=== PATIENT | male | born 1950 | race Caucasian/White ===

== ENCOUNTER 2019-05-31 19:41 | Emergency (ER) | payer MEDICARE, OTHER, SELFPAY ==
[2019-05-31 19:52] VITALS: BP 153/77; PULSE 89; RESP 20; O2SAT 99; BMI 27.0
--- NOTE | 2019-05-31 19:55 | DI.RAD.S_ITS ---
PROCEDURE: XR CHEST 1V INDICATIONS: chest pain TECHNIQUE: One view of the chest was acquired. COMPARISON: None. FINDINGS: Surgical changes and devices: None. Lungs and pleura: Lungs are clear. No pleural effusions or pneumothorax. Mediastinum: Mediastinal contours appear normal. Heart size is normal. Bones and chest wall: No suspicious bony lesions. Overlying soft tissues appear unremarkable. IMPRESSION: No evidence acute pulmonary process. Dictated by: Nikolas Chang M.D. on 05/31/2019 at 20:20 Approved by: Nikolas Chang M.D. on 05/31/2019 at 20:20
[2019-05-31 20:10] LABS: Add Manual Diff / Slide Review NO; Basophils Absolute Auto 100 /uL (0-100); Basophils Percent Auto 0.5 % (0-2); Eosinophils Absolute Auto 200 /uL (0-450); Eosinophils Percent Auto 1.7 % (2-4); Hematocrit 40.1 % (41-53); Hemoglobin 13.7 g/dL (13.5-17.5); Lymphocytes Absolute Auto 3200 /uL (1100-4500); Lymphocytes Percent Auto 22.4 % (25-40); Mean Corpuscular HGB Conc 34.2 % (30-36); Mean Corpuscular Hemoglobin 30.6 PG (26-34); Mean Corpuscular Volume 89.5 fL (80-100); Monocytes Absolute Auto 1100 /uL (0-900); Monocytes Percent Auto 7.6 % (3-14); Neutrophils Absolute Auto 9500 /uL (1500-7000); Neutrophils Percent Auto 67.8 % (50-75); Platelet Count 266 X10^3/uL (150-400); Red Blood Cell Count 4.48 X10^6/uL (4.5-5.9); Red Cell Distribution Width 13.1 % (11.6-14.8); White Blood Cell Count 14.1 X10^3/uL (4.5-11.0)
[2019-05-31 20:15] LABS: Prothrombin Time 11.9 SECONDS (10.1-12.7)
[2019-05-31 20:18] LABS: PTT Partial Thromboplastin Tim 32 SECONDS (26.4-36.2)
[2019-05-31 20:19] LABS: Blood Urea Nitrogen 19 mg/dL (9-20); Carbon Dioxide 28 mmol/L (22-32); Chloride 99 mmol/L (98-107); Creatine Kinase 162 U/L (55-170); Sodium 139 mmol/L (137-145)
[2019-05-31 20:20] LABS: Alanine Aminotransferase 22 IU/L (<50); Albumin 4.4 g/dL (3.5-5.0); Albumin Globulin Ratio 1.6 (1.0-2.8); Alkaline Phosphatase 58 U/L (38-126); Aspartate Aminotransferase 31 IU/L (17-59); Bilirubin Total 0.7 mg/dL (0.2-1.3); Calcium 9.1 mg/dL (8.4-10.2); Estimated Glomerular Filt Rate > 60.0 mL/min (>60); Globulin 2.8 g/dL (1.7-4.1); Glucose 173 mg/dL (80-110); HEMOLYSIS < 15 (0-50); Lipase 163 U/L (23-300); Total Protein 7.2 g/dL (6.3-8.2)
[2019-05-31 20:31] LABS: Troponin I < 0.012 ng/mL (0.01-0.034)
--- NOTE | 2019-05-31 20:32 | ED_ITS ---
HPI - Arrhythmia/Palpitations General Chief Complaint: Arrhythmia/Palpitations Stated Complaint: Says heart keeps stopping and starting Time Seen by Provider: 05/31/19 20:31 Source: patient Mode of arrival: Family Vehicle Limitations: no limitations History of Present Illness HPI narrative: 68-year-old male nonsmoker with history of hypertension presents with his for evaluation of palpitations for the past few days if not longer. He denies any chest pain and does not dizzy nor weak or lightheaded. He denies any fever chills. He denies any changes in medications or diet. He denies any significant caffeine, nicotine or alcohol intake complaint: skipped beats and palpitations Onset (ago): week(s) Duration: intermittent Severity: mild Associated symptoms: denies other symptoms Related Data Previous Rx's Medication Instructions Recorded potassium chloride 20 meq PO DAILY #5 tab 05/31/19 Allergies Allergy/AdvReac Type Severity Reaction Status Date / Time No Known Drug Allergies Allergy Verified 05/31/19 19:55 Review of Systems Constitutional Constitutional: Denies chills, Denies fatigue, Denies fever(s), Denies frequent falls, Denies lethargy and Denies weakness Eyes Eyes: Denies change in vision, Denies eye discharge, Denies irritation and Denies loss of vision ENT Ears, Nose, Mouth, and Throat: Denies change in voice, Denies dizziness, Denies neck pain, Denies sore throat and Denies throat swelling Cardiovascular Cardiovascular: Denies chest pain, Reports irregular heart rhythm, Denies lightheadedness, Reports palpitations, Denies dyspnea, Denies dyspnea on exertion and Denies orthopnea Respiratory Respiratory: Denies cough, Denies dyspnea, Denies dyspnea on exertion and Denies wheezing Gastrointestinal Gastrointestinal: Denies abdominal pain, Denies change in bowel habits, Denies diarrhea, Denies nausea and Denies vomiting Genitourinary Genitourinary: Denies hematuria, Denies flank pain, Denies urinary incontinence and Denies urinary urgency Musculoskeletal Musculoskeletal: Denies back pain, Denies muscle weakness, Denies neck pain, Denies numbness and Denies tingling Integumentary/Breasts Skin/Breast: Denies pruritus, Denies erythema, Denies rash and Denies wounds Neurologic Neurologic: Denies behavioral changes, Denies confusion, Denies dizziness, Denies frequent falls, Denies loss of vision, Denies numbness, Denies tingling and Denies weakness Psychiatric Psychiatric: Denies anxiety, Denies behavioral changes, Denies confusion, Denies depression, Denies homicidal ideation and Denies suicidal ideation Endocrine Endocrine: Denies fatigue, Denies flushing and Reports palpitations Hematologic/Lymphatic Hematologic/Lymphatic: Denies easy bruising Allergic/Immunologic Allergic/Immunologic: Denies urticaria, Denies throat swelling and Denies wheezing Patient History Social History Smoking Status: Never smoker alcohol intake frequency: 0-2 drinks per day Substance Use Type: does not use Exam Narrative Exam Narrative: GENERAL: [68] year old patient appears stated age. Well- nourished, well-developed patient, in mild distress. HEAD: Atraumatic. Normocephalic. EYES: Pupils equal round and reactive. Extraocular motions intact. No scleral icterus. No injection or drainage. ENT: Nose without bleeding, purulent drainage. Throat without erythema, tonsillar hypertrophy or exudate. Airway patent. NECK: Trachea midline. Non tender CARDIOVASCULAR: Regular rate and rhythm without murmurs, gallops, or rubs. RESPIRATORY: Clear to auscultation. Breath sounds equal bilaterally. No wheezes, rales, or rhonchi. GASTROINTESTINAL: Abdomen soft, non-tender, nondistended. EXTREMITIES: No edema or joint tenderness. BACK: Nontender without deformity or crepitance. No flank tenderness. NEURO: AOx3. SKIN: No rash or erythema of visible areas Initial Vital Signs Initial Vital Signs: Vital Signs Pulse Rate 89 05/31/19 19:52 Respiratory Rate 20 05/31/19 19:52 Blood Pressure 153/77 H 05/31/19 19:52 Pulse Oximetry 99 05/31/19 19:52 Course Orders Ordered: Discontinued Medications Potassium Chloride (Potassium Chloride) 40 meq PO NOW ONE Stop: 05/31/19 21:14 Last Admin: 05/31/19 21:20 Dose: 40 meq Documented by: BRYANNA Vital Signs Vital signs: Vital Signs - 8 hr 05/31/19 19:52 Pulse Rate 89 Respiratory Rate 20 Blood Pressure 153/77 H Pulse Oximetry 99 MDM - Arrhythmia/Palpitations Lab Data Result diagrams: 05/31/19 19:59 11/10/19 19:59 Labs: Lab Results 05/31/19 05/31/19 05/31/19 Range/Units 19:59 19:59 19:59 WBC 14.1 H (4.5-11.0) X10^3/uL RBC 4.48 L (4.5-5.9) X10^6/uL Hgb 13.7 (13.5-17.5) g/dL Hct 40.1 L (41-53) % MCV 89.5 (80-100) fL MCH 30.6 (26-34) PG MCHC 34.2 (30-36) % RDW 13.1 (11.6-14.8) % Plt Count 266 (150-400) X10^3/uL Neut % (Auto) 67.8 (50-75) % Lymph % (Auto) 22.4 L (25-40) % Blount % (Auto) 7.6 (3-14) % Eos % (Auto) 1.7 L (2-4) % Baso % (Auto) 0.5 (0-2) % Neut # (Auto) 9500 H (9500-7362) /uL Lymph # (Auto) 3200 (9144-1802) /uL Blount # (Auto) 1100 H (0-900) /uL Eos # (Auto) 200 (0-450) /uL Baso # (Auto) 100 (0-100) /uL PT 11.9 (10.1-12.7) SECONDS INR 1.0 (0.9-1.3) APTT 32 (26.4-36.2) SECONDS Sodium 139 (137-145) mmol/L Potassium 3.0 L (3.4-5.1) mmol/L Chloride 99 (98-107) mmol/L Carbon Dioxide 28 (22-32) mmol/L BUN 19 (9-20) mg/dL Creatinine 1.00 (0.66-1.25) mg/dL Estimated GFR > 60.0 (>60) mL/min BUN/Creatinine Ratio 19.0 (6-22) Glucose 173 H (80-110) mg/dL Calcium 9.1 (8.4-10.2) mg/dL Total Bilirubin 0.7 (0.2-1.3) mg/dL AST 31 (17-59) IU/L ALT 22 (<50) IU/L Alkaline Phosphatase 58 (38-126) U/L Total Creatine Kinase 162 (55-170) U/L CK-MB (CK-2) 1.66 (<2.37) ng/mL CK-MB (CK-2) Rel Index 1.0 L (1.5-5.0) % Troponin I < 0.012 (0.01-0.034) ng/mL Total Protein 7.2 (6.3-8.2) g/dL Albumin 4.4 (3.5-5.0) g/dL Globulin 2.8 (1.7-4.1) g/dL Albumin/Globulin Ratio 1.6 (1.0-2.8) Lipase 163 (23-300) U/L ECG Data Attestation: I personally reviewed and interpreted this ECG as follows: Prior ECG tracings: not available for review Interpretation: EKG is normal sinus rhythm without any ischemic change such as segmental elevation or depression. There are occasional PVCs however. No ST segmental elevation or depression. No T wave inversions MDM Narrative Medical decision making narrative: 68-year-old male on chlorthalidone with occasional PVCs and hypokalemia. Patient otherwise well, tolerated oral potassium replacement. He will follow up closely with his provider. He has been given return precautions. Discharge Plan Departure Patient Disposition: Home Clinical Impression: Palpitations, Acute hypokalemia Discharge Date/Time: 05/31/19 21:35 Instructions: Arrhythmias, DI for Hypokalemia Activity Restrictions/Additional Instructions: *You have been diagnosed with [acute hypokalemia, PVCs] *What to do: *Take medications as directed *Follow up with your primary care provider in 2-3 days, call for an appointment. Let them know you were seen in the Emergency Department and that we ask that you be seen in follow up *Return to ER if you should have any new, worsening or concerning symptoms Prescriptions: New potassium chloride 20 mEq tablet extended release 20 meq PO DAILY Qty: 5 RF: 0 Referrals: Rene Ho [Primary Care Provider] -
[2019-05-31 20:35] LABS: Creatine Kinase MB 1.66 ng/mL (<2.37)
[2019-05-31 21:05] VITALS: BP 130/59; PULSE 64; O2SAT 97
[2019-05-31] MEDS: POTASSIUM CHLORIDE 20 MEQ/15 ML UDC 40 MEQ PO (21:20)
== END 2019-05-31 21:35 | disposition home or self-care (01) ==
PROVIDERS: Emergency Provider Emergency Medicine; PCP Family Medicine
DX: R00.2 Palpitations (principal); E87.6 Hypokalemia
CPT/HCPCS: 36415; 71045; 80053; 82550; 82553; 83690; 84484; 85025; 85610; 85730; 93005; 99283; 99285

== ENCOUNTER → 2021-07-29 13:14 | Outpatient (CLI) | payer MEDICARE, OTHER, SELFPAY ==
[2021-07-29 14:06] LABS: COVID19 -Nasal RAPID Negative (Negative)
== END ==
PROVIDERS: PCP Family Medicine; Visit Provider Nurse Practitioner Family
DX: Z20.822 Contact with and (suspected) exposure to COVID-19 (principal); R53.83 Other fatigue
CPT/HCPCS: 87635

== ENCOUNTER 2022-05-16 15:34 | Emergency (ER) | payer MEDICARE, OTHER, SELFPAY ==
[2022-05-16 15:40] VITALS: BP 159/76; PULSE 71; RESP 16; TEMP 36.6; O2SAT 100
--- NOTE | 2022-05-16 15:43 | DI.RAD.S_ITS ---
PROCEDURE: XR FINGER LT MIN 2V INDICATIONS: crush injury TECHNIQUE: AP hand, 2 views of the 4th finger(s) acquired. COMPARISON: None. FINDINGS: Bones: Comminuted distal tuft fracture of distal phalanx of 4th finger. No suspicious bony lesions. Soft tissues: No suspicious soft tissue calcifications. IMPRESSION: Comminuted distal tuft fracture of distal phalanx of 4th finger. Dictated by: Nikolas Chang M.D. on 05/16/2022 at 16:51 Approved by: Nikolas Chang M.D. on 05/16/2022 at 16:52
--- NOTE | 2022-05-16 15:43 | DI.RAD.S_ITS ---
PROCEDURE: XR FINGER RT MIN 2V INDICATIONS: crush injury TECHNIQUE: AP hand, 2 views of the 4th finger(s) acquired. COMPARISON: None. FINDINGS: Bones: No fractures or dislocations. No suspicious bony lesions. Soft tissues: No suspicious soft tissue calcifications. IMPRESSION: No evidence acute bony abnormality of the left 4th finger Dictated by: Nikolas Chang M.D. on 05/16/2022 at 16:51 Approved by: Nikolas Chang M.D. on 05/16/2022 at 16:51
[2022-05-16] MEDS: ACETAMINOPHEN 325 MG TABLET 975 MG PO (16:18)
[2022-05-16] MEDS: BACITRACIN OINT 0.9 GM PCKT 1 APPLIC TOP (17:05)
[2022-05-16 17:24] VITALS: BP 149/73; PULSE 55; RESP 16; O2SAT 98
--- NOTE | 2022-05-16 20:11 | ED_ITS ---
HPI - Extremity Injury (Upper) <ADIEL Montenegro - Last Filed: 05/16/22 20:19> General Chief Complaint: Extremity Injury, Upper Stated Complaint: Bilat hand inj Time Seen by Provider: 05/16/22 16:27 Source: patient Mode of arrival: Ambulatory History of Present Illness HPI narrative: This is a 71 male who presents to the emergency department complaining of a crush injury to his left 4th digit and his right 4th digit from a log splitter. The right 4th digit has a fingernail injury with a subungual hematoma that was relieved with a small puncture wound to the lateral aspect. No further bleeding, patient denies any range of motion changes or sensation changes other than pain. He complains of pain at the distal aspect of his left 4th digit and his PIP joint on his left hand. He states his tetanus is up-to-date, denies any significant pain, denies any range of motion deficit. Related Data Previous Rx's Medication Instructions Recorded potassium chloride 20 mEq 20 meq PO DAILY #5 tabs 05/31/19 tablet,extended release Allergies Allergy/AdvReac Type Severity Reaction Status Date / Time No Known Drug Allergies Allergy Verified 05/31/19 19:55 Review of Systems <ADIEL Montenegro - Last Filed: 05/16/22 20:19> Review of Systems Narrative: Review of systems is negative for acute abnormalities unless otherwise noted in HPI Patient History <ADIEL Montenegro - Last Filed: 05/16/22 20:19> Social History Smoking Status: Never smoker Smoking Status: Never smoker alcohol intake frequency: 0-2 drinks per day Substance Use Type: does not use Exam <ADIEL Montenegro - Last Filed: 05/16/22 20:19> Narrative Exam Narrative: Reviewed vitals signs and nursing notes. General: cooperative, comfortable, in no acute distress, well groomed MSK: moves all extremities, neurovascularly intact, no weakness, normal tone, flexion and extension intact to bilateral finger injuries, right 4th finger with subungual hematoma that was vented during his injury, no visible subungual laceration, flexion extension intact without any sensation or movement deficits. Mild swelling to the PIP joint on the left 4th digit, cap refill is brisk bilaterally. Patient states that his pain is tolerable Skin: brisk capillary refill, without pallor or erythema Psych: mental status is grossly normal, congruent mood, normal affect, pleasant and cooperative Initial Vital Signs Initial Vital Signs: Vital Signs Temperature 97.9 F 05/16/22 15:40 Pulse Rate 71 05/16/22 15:40 Respiratory Rate 16 05/16/22 15:40 Blood Pressure 159/76 H 05/16/22 15:40 Pulse Oximetry 100 05/16/22 15:40 Oxygen Delivery Method 05/16/22 15:40 <Mary Anne Bedoya DO - Last Filed: 05/17/22 08:26> Initial Vital Signs Initial Vital Signs: Vital Signs Temperature 97.9 F 05/16/22 15:40 Pulse Rate 71 05/16/22 15:40 Respiratory Rate 16 05/16/22 15:40 Blood Pressure 159/76 H 05/16/22 15:40 Pulse Oximetry 100 05/16/22 15:40 Oxygen Delivery Method 05/16/22 15:40 Procedures <ADIEL Montenegro - Last Filed: 05/16/22 20:19> Orthopedic Splinting/Casting Injury #1: Upper Extremity Injury Location: finger Upper Extremity Immobilizer: aluminum form splint and finger (other) Post splinting neuro exam: intact and no change Post splinting vascular exam: intact Course <ADIEL Montenegro - Last Filed: 05/16/22 20:19> Orders Ordered: Discontinued Medications Acetaminophen (Acetaminophen 325 Mg Tablet) 975 mg PO NOW ONE Stop: 05/16/22 16:17 Last Admin: 05/16/22 16:18 Dose: 975 mg Documented By: ABRAN Bacitracin (Bacitracin Oint 0.9 Gm Pckt) 1 applic TOP NOW ONE Stop: 05/16/22 16:50 Last Admin: 05/16/22 17:05 Dose: 1 applic Documented By: LORIE Diphtheria/Tetanus/Acell Pertussis (Tet,Diph,Pertuss(Acell),Vac/Pf 0.5 Ml Syringe) 0.5 ml IM .ONCE ONE Stop: 05/16/22 16:30 Last Admin: 05/16/22 17:05 Dose: Not Given Documented By: LORIE Ketorolac Tromethamine (Ketorolac 30 Mg/Ml Vial) 15 mg IM NOW ONE Stop: 05/16/22 16:30 Last Admin: 05/16/22 17:04 Dose: Not Given Documented By: LORIE Lidocaine HCl (Lidocaine 2% Inj Sdv) 5 ml INJ INTRA-OP ONE Stop: 05/16/22 16:30 Last Admin: 05/16/22 17:05 Dose: Not Given Documented By: LORIE Vital Signs Vital signs: Vital Signs - 8 hr 05/16/22 15:40 05/16/22 17:24 Temperature 97.9 F Pulse Rate 71 55 L Respiratory Rate 16 16 Blood Pressure 159/76 H 149/73 H Pulse Oximetry 100 98 Oxygen Delivery Method Room Air Room Air <Mary Anne Bedoya DO - Last Filed: 05/17/22 08:26> Orders Ordered: Discontinued Medications Acetaminophen (Acetaminophen 325 Mg Tablet) 975 mg PO NOW ONE Stop: 05/16/22 16:17 Last Admin: 05/16/22 16:18 Dose: 975 mg Documented By: ABRAN Bacitracin (Bacitracin Oint 0.9 Gm Pckt) 1 applic TOP NOW ONE Stop: 05/16/22 16:50 Last Admin: 05/16/22 17:05 Dose: 1 applic Documented By: LORIE Diphtheria/Tetanus/Acell Pertussis (Tet,Diph,Pertuss(Acell),Vac/Pf 0.5 Ml Syringe) 0.5 ml IM .ONCE ONE Stop: 05/16/22 16:30 Last Admin: 05/16/22 17:05 Dose: Not Given Documented By: LORIE Ketorolac Tromethamine (Ketorolac 30 Mg/Ml Vial) 15 mg IM NOW ONE Stop: 05/16/22 16:30 Last Admin: 05/16/22 17:04 Dose: Not Given Documented By: LORIE Lidocaine HCl (Lidocaine 2% Inj Sdv) 5 ml INJ INTRA-OP ONE Stop: 05/16/22 16:30 Last Admin: 05/16/22 17:05 Dose: Not Given Documented By: LORIE Vital Signs Vital signs: Vital Signs - 8 hr 05/16/22 15:40 05/16/22 17:24 Temperature 97.9 F Pulse Rate 71 55 L Respiratory Rate 16 16 Blood Pressure 159/76 H 149/73 H Pulse Oximetry 100 98 Oxygen Delivery Method Room Air Room Air MDM - Extremity Injury (Upper) <Darshana Shona [place], [facility] - Last Filed: 05/16/22 20:19> Imaging Data Extremity x-ray #1: Radiologist's Impression: PROCEDURE:? XR FINGER RT MIN 2V ? INDICATIONS:? crush injury ? TECHNIQUE:? AP hand, 2 views of the 4th finger(s) acquired.? ? COMPARISON:? None. ? FINDINGS:? ? Bones:? No fractures or dislocations.? No suspicious bony lesions.? ? Soft tissues:? No suspicious soft tissue calcifications.? ? IMPRESSION:? No evidence acute bony abnormality of the left 4th finger ? ? Dictated by: Nikolas Chang M.D. on 05/16/2022 at 16:51 ? ? Approved by: Nikolas Chang M.D. on 05/16/2022 at 16:51 ? Extremity x-ray #2: Radiologist's Impression: PROCEDURE:? XR FINGER LT MIN 2V ? INDICATIONS:? crush injury ? TECHNIQUE:? AP hand, 2 views of the 4th finger(s) acquired.? ? COMPARISON:? None. ? FINDINGS:? ? Bones:? Comminuted distal tuft fracture of distal phalanx of 4th finger.? No suspicious bony lesions.? ? Soft tissues:? No suspicious soft tissue calcifications.? ? IMPRESSION:? Comminuted distal tuft fracture of distal phalanx of 4th finger. ? ? Dictated by: Nikolas Chang M.D. on 05/16/2022 at 16:51 ? ? Approved by: Nikolas Chang M.D. on 05/16/2022 at 16:52 ? [facility] Narrative Medical decision making narrative: This is a 71-year-old male presents to the emergency department after crush injury to his bilateral 4th fingers on his right and left hands, right hand at the distal phalanx with a subungual hematoma, and left hand 4th digit pain at the PIP joint. Left hand with no open wound, right hand has a small puncture wound to the side of fingernail without any laceration underneath the nail bed visualized. Full range of motion intact without any sensory or physical deficit. X-ray of his right hand 4th digit shows a comminuted distal tuft fracture of the distal phalanx of the 4th finger without any other suspicious bony lesions. Patient was splinted in a clamshell finger splint to protect the injury and to immobilize the D IP joint. He was given a prescription of topical mupirocin and encouraged to return for any worsening if he needs any oral antibiotics. Since there is no visualized laceration, conservative management was used with strict return precautions for any worsening or symptoms of infection for oral antibiotics. Patient states understanding, he was given contact information for [facility] for follow-up. Patient is appropriate and amenable to discharge home. Vital signs are stable on repeat examination is unremarkable. Patient has been informed of results. Patient has been given strict return to ER precautions for any new or worsening symptoms. Patient understands to follow up closely with outpatient providers as instructed. Patient understands plan and agrees to discharge home. All questions and concerns answered at this time. Discharge Plan Departure Patient Disposition: Home Clinical Impression: Open fracture of tuft of distal phalanx of finger Finger injury Qualifiers: Encounter type: initial encounter Laterality: right Qualified Code(s): S69.91XA - Unspecified injury of right wrist, hand and finger(s), initial encounter Instructions: DI for Finger Fracture Activity Restrictions/Additional Instructions: *You have been diagnosed with a tuft fracture in the fingernail injury finger. The use of prophylactic antibiotics is controversial, you should only need antibiotics if it was grossly contaminated or if you have other medical problems like diabetes. Use topical antibiotics and this should heal without issue. Please use the splint for the next 2-3 weeks. Beyond that may cause joint stiffness and function loss. You can splint the finger with a Band-Aid just to keep the joint straight in between the two joints. Please follow-up at [facility] if you have any complications from this with healing. Please keep it covered with a Band-Aid for the next week until it heals to help keep it clean. Return for any new or worsening conditions, I hope you feel better soon. Use ibuprofen and/or Tylenol as needed for your pain, please schedule an appointment with [facility] for follow-up, cancel it if you heal without any complications. Thank you for your patients today, sorry for your wait. *What to do: *Please continue to take your regular medications as directed. [ ] New medication prescriptions sent to your pharmacy: [ ] [ ] New medication written as a paper prescription [ x] No new medications given *Please follow up with your primary care provider in 2-3 days, call for an edwin ointment. Let them know you were seen in the Emergency Department and that we asked that you be seen for follow-up. We will electronically transmit a record of today's note if your PCP is in our system *If you do not have a primary care provider please contact [phone] to establish care with one of the [facility] primary care providers. *Return to Emergency Department if you should have any new, worsening, or concerning symptoms, such as [fever greater than 101F, chills, worsening pain, persistent vomiting or other bothersome symptoms]. Prescriptions: No Action potassium chloride 20 mEq tablet extended release 20 meq PO DAILY Qty: 5 0RF Referrals: [facility] [Provider Group] Rene Ho [Primary Care Provider] - Visit Report Forms: Patient Portal/API <Mary Anne Bedoya DO - Last Filed: 05/17/22 08:26> Cosign ED Attending Hollyature Attestation: I was immediately available in the department for consultation. Documentation has been reviewed. I agree with assessment and plan.
== END 2022-05-16 17:25 | disposition home or self-care (01) ==
PROVIDERS: Emergency Provider Nurse Practitioner Critical Care Medicine; PCP Family Medicine
DX: S62.631A Displaced fracture of distal phalanx of left index finger, initial encounter for closed fracture (principal); S69.91XA Unspecified injury of right wrist, hand and finger(s), initial encounter; W23.0XXA Caught, crushed, jammed, or pinched between moving objects, initial encounter
CPT/HCPCS: 73140; 99283

== ENCOUNTER 2022-10-07 20:44 | Emergency (ER) | payer MEDICARE, OTHER, SELFPAY ==
--- NOTE | 2022-10-07 20:47 | DI.RAD.S_ITS ---
PROCEDURE: XR CHEST 2V INDICATIONS: cough TECHNIQUE: 2 views of the chest were acquired. COMPARISON: [facility], CR, XR CHEST 1V, 05/31/2019, 19:59. FINDINGS: Surgical changes and devices: None. Lungs and pleura: Lungs are clear. No pleural effusions or pneumothorax. Mediastinum: Mediastinal contours are normal. Heart size is normal. Bones and chest wall: No suspicious bony abnormalities. Soft tissues appear unremarkable. IMPRESSION: 1. No acute cardiopulmonary disease. Dictated by: Levi Murphy M.D. on 10/07/2022 at 22:03 Approved by: Levi Murphy M.D. on 10/07/2022 at 22:04
[2022-10-07 21:04] VITALS: BP 159/71; PULSE 73; RESP 16; TEMP 36.3; O2SAT 95; BMI 27.0
[2022-10-07 22:07] LABS: COVID-19 CEPHEID 4-PLEX PCR Negative (Negative); Influenza A - CEPHEID Flu A NEGATIVE (NEGATIVE); Influenza B - CEPHEID Flu B NEGATIVE (NEGATIVE); Respiratory Syncytial Virus Negative (Negative)
--- NOTE | 2022-10-08 01:47 | ED.URI ---
HPI - URI/Sore Throat General Chief Complaint: Upper Respiratory Symptoms Stated Complaint: chest cold/cough Time Seen by Provider: 10/07/22 20:47 Source: patient Mode of arrival: Ambulatory Related Data Previous Rx's Medication Instructions Recorded potassium chloride 20 mEq 20 meq PO DAILY #5 tabs 05/31/19 tablet,extended release Allergies Allergy/AdvReac Type Severity Reaction Status Date / Time No Known Drug Allergies Allergy Verified 05/31/19 19:55 Patient History Social History Smoking Status: Never smoker Smoking Status: Never smoker alcohol intake frequency: 0-2 drinks per day Substance Use Type: does not use Exam Initial Vital Signs Initial Vital Signs: Vital Signs Temperature 97.4 F L 10/07/22 21:04 Pulse Rate 73 10/07/22 21:04 Respiratory Rate 16 10/07/22 21:04 Blood Pressure 159/71 H 10/07/22 21:04 Pulse Oximetry 95 10/07/22 21:04 Oxygen Delivery Method Room Air 10/07/22 21:04 Course Orders Ordered: ED Orders 10/07/22 20:47 Chest [XR chest 2V] Stat 10/07/22 21:08 Covid-19 + FLU A/B + RSV - PCR Stat Vital Signs Vital signs: Vital Signs - 8 hr 10/07/22 21:04 Temperature 97.4 F L Pulse Rate 73 Respiratory Rate 16 Blood Pressure 159/71 H Pulse Oximetry 95 Oxygen Delivery Method Room Air MDM - URI/Sore Throat Lab Data Labs: Lab Results 10/07/22 Range/Units 21:08 SARS-CoV-2 (PCR) Negative (Negative) Influenza A (RT-PCR) Flu a negative (NEGATIVE) Influenza B (RT-PCR) Flu b negative (NEGATIVE) RSV (PCR) Negative (Negative) Discharge Plan Departure Prescriptions: No Action potassium chloride 20 mEq tablet extended release 20 meq PO DAILY Qty: 5 0RF Referrals: Rene Ho [Primary Care Provider] -
== END 2022-10-08 02:22 | disposition left against medical advice (07) ==
PROVIDERS: Emergency Provider Emergency Medicine; PCP Family Medicine
DX: R05.9 Cough, unspecified (principal)
CPT/HCPCS: 0241U; 71046; 99283

== ENCOUNTER 2023-04-06 13:57 | Emergency (ER) | payer MEDICARE, OTHER, SELFPAY ==
[2023-04-06 14:07] VITALS: BP 129/60; PULSE 59; RESP 17; TEMP 36.6; O2SAT 99; BMI 26.9
--- NOTE | 2023-04-06 14:08 | DI.CT.S_ITS ---
PROCEDURE: CT HEAD/BRAIN WO CON INDICATIONS: fell from ladder TECHNIQUE: Noncontrast 4.5 mm thick angled axial sections acquired from the foramen magnum to the vertex, with coronal and sagittal reformats. For radiation dose reduction, the following was used: automated exposure control, adjustment of mA and/or kV according to patient size. COMPARISON: [facility], CR, XR WRIST RT 2V, 04/06/2023, 14:14. [facility], CT, CT CERVICAL SPINE WO CON, 04/06/2023, 14:11. FINDINGS: Image quality: Mild streak artifact can be seen through the skull base. CSF spaces: Basal cisterns are patent. No extra-axial fluid collections. The ventricles are symmetric in size and shape. Brain: No intracranial bleeds or masses. There is cerebral volume loss for age, with resultant ventricular and sulcal prominence. There are periventricular and deep white matter chronic small vessel ischemic changes. There is intracranial internal carotid artery atherosclerosis. Skull and face: Calvarium and visualized facial bones appear intact, without suspicious lesions. Sinuses: Visualized sinuses and mastoids are clear. IMPRESSION: No acute intracranial hemorrhage is seen. No acute intracranial process is seen. No displaced calvarial fracture can be seen. Dictated by: Marck Guevara M.D. on 04/06/2023 at 13:44 Approved by: Marck Guevara M.D. on 04/06/2023 at 13:44
--- NOTE | 2023-04-06 14:08 | DI.CT.S_ITS ---
PROCEDURE: CT CERVICAL SPINE WO CON INDICATIONS: fell off ladder TECHNIQUE: Noncontrast 3 mm thick sections acquired from the skull base to the T4 level. Sagittal and coronal reformats were then constructed. For radiation dose reduction, the following was used: automated exposure control, adjustment of mA and/or kV according to patient size. COMPARISON: [facility], CR, XR WRIST RT 2V, 04/06/2023, 14:14. [facility], CT, CT HEAD/BRAIN WO CON, 04/06/2023, 14:11. FINDINGS: Image quality: Excellent. Bones: No fractures or dislocations. Visualized superior ribs are intact. Focal degenerative change is seen involving the C1-C2 interface anteriorly. There is moderate disc space narrowing seen at C3-C4, with at least moderate disc space narrowing seen at C4-C5, C5-C6, and C6-C7. Posteriorly directed endplate osteophytes can be seen at several levels. Soft tissues: Prevertebral soft tissues are normal in thickness. No paravertebral hematomas. No apical pneumothoraces. IMPRESSION: Negative for fracture. Multiple levels of cervical spine degenerative change can be seen. Dictated by: Marck Guevara M.D. on 04/06/2023 at 13:45 Approved by: Marck Guevara M.D. on 04/06/2023 at 13:46
--- NOTE | 2023-04-06 14:08 | DI.RAD.S_ITS ---
PROCEDURE: XR WRIST RT 2V INDICATIONS: fell off ladder, right wrist pain TECHNIQUE: 4 views of the wrist were acquired. COMPARISON: [facility], CT, CT HEAD/BRAIN WO [facility], 04/06/2023, 14:11. [facility], CT, CT CERVICAL SPINE WO [facility], 04/06/2023, 14:11. FINDINGS: Bones: No acute appearing fractures or dislocations. There is a 1 mm remote appearing avulsion fracture fragment seen proximal to the first metacarpal. No suspicious bony lesions. Scaphoid view: No navicular fractures are seen. Soft tissues: No suspicious soft tissue calcifications. IMPRESSION: No acute fractures are seen. If there is snuffbox tenderness (or other clinical suspicion for a fracture not seen on these images) then a repeat examination would be recommended in 10 to 14 days, following splinting. Dictated by: Marck Guevara M.D. on 04/06/2023 at 13:46 Approved by: Marck Guevara M.D. on 04/06/2023 at 13:47
--- NOTE | 2023-04-06 14:11 | ED.FALL ---
HPI - Fall <Aliza Genao PA-C - Last Filed: 04/06/23 16:22> General Chief Complaint: Fall Stated Complaint: fell off ladder, hit head and R/ wrist Time Seen by Provider: 04/06/23 14:04 Source: patient Mode of arrival: Ambulatory History of Present Illness HPI Narrative: Patient is a 72-year-old male was working on a 6 ft ladder when the ladder slipped out from underneath him. He estimates he was about 5 feet up at the time. He fell onto the brick below and the ladder bounced up and hit him on the left side of his head. His glasses fell off. He did not lose consciousness. He denies any headache or nausea or vomiting, any blurry vision or double vision. He is complaining of pain in his right wrist. There is a 1.5 cm laceration visible over the radial aspect of his right wrist. He is not taken any medication or tried any therapy. His daily medications are amlodipine and atenolol. He does not take any blood thinners including aspirin. Related Data Home Medications Medication Instructions Recorded Confirmed amlodipine 5 mg tablet 5 mg PO DAILY 04/06/23 04/06/23 atenolol 50 mg tablet 100 mg PO DAILY 04/06/23 04/06/23 Allergies Allergy/AdvReac Type Severity Reaction Status Date / Time benzocaine [From Solarcaine] Allergy Rash Verified 04/06/23 14:10 triclosan [From Solarcaine] Allergy Rash Verified 04/06/23 14:10 Review of Systems <Aliza Genao PA-C - Last Filed: 04/06/23 16:22> Review of Systems ROS Unobtainable: All systems reviewed & are unremarkable except as noted in HPI and below Patient History <Aliza Genao PA-C - Last Filed: 04/06/23 16:22> Social History Smoking Status: Never smoker Smoking Status: Never smoker alcohol intake frequency: holidays/special occasions only Substance Use Type: does not use Exam <Aliza Genao PA-C - Last Filed: 04/06/23 16:22> Narrative Exam Narrative: GENERAL: 72 year old patient appears stated age. Well-developed patient, in no distress. NEURO: AOx3. HEAD: Normocephalic. 1 cm laceration through the left lateral eyebrow with mild surrounding edema. EYES: Pupils equal round and reactive. Extraocular motions intact. No scleral icterus. No injection or drainage. ENT: Nose without bleeding or purulent drainage. Airway patent. NECK: Trachea midline. No tenderness with midline C-spine palpation. RESPIRATORY: No distress EXTREMITIES: 1.5 cm shallow laceration over radial aspect of right wrist. Right wrist with point tenderness over radial aspect. Patient able to flex and extend at the wrist, distal circulation intact. SKIN: No rash or erythema of visible areas Initial Vital Signs Initial Vital Signs: Vital Signs Temperature 98 F 04/06/23 14:07 Pulse Rate 59 L 04/06/23 14:07 Respiratory Rate 17 04/06/23 14:07 Blood Pressure 129/60 04/06/23 14:07 Pulse Oximetry 99 04/06/23 14:07 Oxygen Delivery Method Room Air 04/06/23 14:07 <Terry Cobos DO - Last Filed: 04/06/23 16:35> Initial Vital Signs Initial Vital Signs: Vital Signs Temperature 98 F 04/06/23 14:07 Pulse Rate 59 L 04/06/23 14:07 Respiratory Rate 17 04/06/23 14:07 Blood Pressure 129/60 04/06/23 14:07 Pulse Oximetry 99 04/06/23 14:07 Oxygen Delivery Method Room Air 04/06/23 14:07 Procedures <KAYLIN Donovan Last Filed: 04/06/23 16:22> Laceration Repair Laceration 1: Site: face Side (If applicable): left Size (cm): 2 Description: stellate and clean Depth: simple, single layer Local Anesthetic: lidocaine 2% Amount of anesthesia used (mL): 1 Pre-repair: wound explored and irrigated extensively Skin layer closed with: nylon Skin layer suture size: 6-0 Number of sutures: 3 Technique: simple, interrupted Laceration 2: Site: upper extremity Side (If applicable): right Size (cm): 1 Description: linear and clean Depth: simple, single layer Pre-repair: irrigated extensively Skin layer closed with: dermabond Scores <KAYLIN Donovan Last Filed: 04/06/23 16:22> [place] CT Head Rule Age <16 years old: No Patient on blood thinners: No Seizure after injury: No Exclusion: Patient NOT Excluded, Proceed to next steps GCS < 15 at 2 hr post trauma: No Suspected open or depressed skull fracture: No Any sign of basilar skull fracture (hemotympanum, raccoon eyes, Gao's sign, CSF reena-/rhinorrhea): No Two or more episodes of vomiting: No Age greater or equal to 65 years: Yes Retrograde amnesia to the event greater or equal to 30 min: No Dangerous Mechanism (pedestrian vs. mv, occupant ejected from mv, fall from >3 ft or > 5 stairs): Yes Recommendation: Consider CT. The [place] Head CT Rule cannot rule out need for Imaging. Nexus Score for C-Spine Focal Neurologic deficit present: No Midline spinal tenderness present: No Altered level of conciousness present: No Intoxication present: No Distracting Injury Present: No Nexus Criteria for C-spine: 0 <Terry Cobos DO - Last Filed: 04/06/23 16:35> [place] CT Head Rule Exclusion: Patient NOT Excluded, Proceed to next steps Recommendation: Consider CT. The [place] Head CT Rule cannot rule out need for Imaging. Nexus Score for C-Spine Nexus Criteria for C-spine: 0 Course <TONY Donovan-C - Last Filed: 04/06/23 16:22> Orders Ordered: ED Orders 04/06/23 14:08 CT cervical spine wo con Stat CT head/brain wo con Stat XR wrist RT 2V Stat Vital Signs Vital signs: Vital Signs - 8 hr 04/06/23 14:07 04/06/23 15:22 Temperature 98 F Pulse Rate 59 L 52 L Respiratory Rate 17 Blood Pressure 129/60 139/64 Pulse Oximetry 99 100 Oxygen Delivery Method Room Air Room Air <Terry Cobos DO - Last Filed: 04/06/23 16:35> Orders Ordered: ED Orders 04/06/23 14:08 CT cervical spine wo con Stat CT head/brain wo con Stat XR wrist RT 2V Stat Vital Signs Vital signs: Vital Signs - 8 hr 04/06/23 14:07 04/06/23 15:22 Temperature 98 F Pulse Rate 59 L 52 L Respiratory Rate 17 Blood Pressure 129/60 139/64 Pulse Oximetry 99 100 Oxygen Delivery Method Room Air Room Air MDM - Fall <Aliza Genao PA-C - Last Filed: 04/06/23 16:22> Imaging Data CT scan - head: Radiologist's Impression: PROCEDURE:? CT HEAD/BRAIN WO CON ? INDICATIONS:? fell from ladder ? TECHNIQUE:? Noncontrast 4.5 mm thick angled axial sections acquired from the foramen magnum to the vertex, with coronal and sagittal reformats.? For radiation dose reduction, the following was used:? automated exposure control, adjustment of mA and/or kV according to patient size.? ? COMPARISON:? [facility], CR, XR WRIST RT 2V, 04/06/2023, 14:14.? [facility], CT, CT CERVICAL SPINE WO CON, 04/06/2023, 14:11. ? FINDINGS:? Image quality:? Mild streak artifact can be seen through the skull base. ? CSF spaces:? Basal cisterns are patent.? No extra-axial fluid collections.? The ventricles are symmetric in size and shape.? ? Brain:? No intracranial bleeds or masses.? There is cerebral volume loss for age, with resultant ventricular and sulcal prominence.? There are periventricular and deep white matter chronic small vessel ischemic changes.? There is intracranial internal carotid artery atherosclerosis.? ? Skull and face:? Calvarium and visualized facial bones appear intact, without suspicious lesions.? ? Sinuses:? Visualized sinuses and mastoids are clear.? ? IMPRESSION:? No acute intracranial hemorrhage is seen. ? No acute intracranial process is seen. ? No displaced calvarial fracture can be seen.? ? Dictated by: Marck Guevara M.D. on 04/06/2023 at 13:44 ? ? Approved by: Marck Guevara M.D. on 04/06/2023 at 13:44 ? CT - cervical spine: Radiologist's Impression: PROCEDURE:? CT CERVICAL SPINE WO CON ? INDICATIONS:? fell off ladder ? TECHNIQUE:? Noncontrast 3 mm thick sections acquired from the skull base to the T4 level.? Sagittal and coronal reformats were then constructed.? For radiation dose reduction, the following was used:? automated exposure control, adjustment of mA and/or kV according to patient size.? ? COMPARISON:? [facility], CR, XR WRIST RT 2V, 04/06/2023, 14:14.? [facility], CT, CT HEAD/BRAIN WO CON, 04/06/2023, 14:11. ? FINDINGS:? Image quality:? Excellent.? ? Bones:? No fractures or dislocations.? Visualized superior ribs are intact.? ? Focal degenerative change is seen involving the C1-C2 interface anteriorly.? There is moderate disc space narrowing seen at C3-C4, with at least moderate disc space narrowing seen at C4-C5, C5-C6, and C6-C7.? Posteriorly directed endplate osteophytes can be seen at several levels. ? Soft tissues:? Prevertebral soft tissues are normal in thickness.? No paravertebral hematomas.? No apical pneumothoraces.? ? ? IMPRESSION:? Negative for fracture. ? Multiple levels of cervical spine degenerative change can be seen. ? ? ? Dictated by: Marck Guevara M.D. on 04/06/2023 at 13:45 ? ? Approved by: Marck Guevara M.D. on 04/06/2023 at 13:46 ? Extremity x-ray #1: Radiologist's Impression: PROCEDURE:? XR WRIST RT 2V ? INDICATIONS: fell off ladder, right wrist pain ? TECHNIQUE:? 4 views of the wrist were acquired.? ? COMPARISON:? [facility], CT, CT HEAD/BRAIN WO CON, 04/06/2023, 14:11.? [facility], CT, CT CERVICAL SPINE WO [facility], 04/06/2023, 14:11. ? FINDINGS:? ? Bones:? No acute appearing fractures or dislocations.? There is a 1 mm remote appearing avulsion fracture fragment seen proximal to the first metacarpal.? No suspicious bony lesions.? ? Scaphoid view:? No navicular fractures are seen. ? Soft tissues:? No suspicious soft tissue calcifications.? ? ? IMPRESSION:? ? No acute fractures are seen.? ? If there is snuffbox tenderness (or other clinical suspicion for a fracture not seen on these images) then a repeat examination would be recommended in 10 to 14 days, following splinting. ? ? ? Dictated by: Marck Guevara M.D. on 04/06/2023 at 13:46 ? ? Approved by: Marck Guevara M.D. on 04/06/2023 at 13:47 ? MDM Narrative Medical decision making narrative: Multiple etiologies for patient's symptoms considered including, but not limited to: Bony fracture, closed head injury, intracranial hemorrhage. Will obtain CT imaging of the head and C-spine per [place] head CT Tool, and x-ray of the right wrist. Wounds irrigated with normal saline and repaired as documented above. Tetanus up-to-date. CT of head and neck is unremarkable and x-ray of the right upper extremity does not show any fracture. Advised patient to return in 5 days for suture removal. Keep lacerations clean dry and intact, may shower. Patient's symptoms improved over duration of stay with above-stated therapies. Findings and discharge diagnosis discussed with patient/family followed by verbalization of understanding Return precautions discussed with patient/family whom verbalize understanding of diagnosis and plan Discharge Plan Departure Patient Disposition: Home Clinical Impression: Laceration of face, Laceration of right wrist Instructions: DI for Laceration Repair, How To Perform RICE (Rest, Ice, Compress, Elevate) Activity Restrictions/Additional Instructions: *You have been diagnosed with laceration to left face and right wrist, and bruising to right wrist. Please return to walk-in clinic or ER for suture removal in 5 days. You can apply bacitracin ointment to your laceration on your face over the stitches. Apply ice to your right forearm to decrease swelling and pain. *What to do: *Please continue to take your regular medications as directed. [ ] New medication prescriptions sent to your pharmacy: [ ] [ ] New medication written as a paper prescription [ x] No new medications given *Please follow up with your primary care provider in 2-3 days, call for an appointment. Let them know you were seen in the Emergency Department and that we ask that you be seen in follow up. We will electronically transmit a record of today's note if your PCP is in our system *If you do not have a primary care provider please contact the [facility] Resource line at [phone]. They will ask some questions about your medical history and help get you set up with a doctor in the community. *Return to Emergency Department if you should have any new, worsening or concerning symptoms, such as [fever greater than 101 F, shaking chills, worsening pain, persistent vomiting or other concerning symptoms]. Prescriptions: No Action amlodipine 5 mg tablet 5 mg PO DAILY atenolol 50 mg tablet 100 mg PO DAILY Referrals: Yusef Cota DO [Primary Care Provider] - Stand Alone Forms: Patient Portal/API <Terry Cobos DO - Last Filed: 04/06/23 16:35> Cosign ED Attending Cosignature Attestation: Dr Cobos Co-Sign Statement: I was available for consultation during this patient's emergency department visit. This chart is signed by myself for administrative purposes only. I did not have direct contact with this patient during this visit. They were seen independently by the APC.
[2023-04-06 15:22] VITALS: BP 139/64; PULSE 52; O2SAT 100
== END 2023-04-06 15:22 | disposition home or self-care (01) ==
PROVIDERS: Emergency Provider Physician Assistant; PCP Family Medicine
DX: S01.81XA Laceration without foreign body of other part of head, initial encounter (principal); S61.511A Laceration without foreign body of right wrist, initial encounter; W11.XXXA Fall on and from ladder, initial encounter
CPT/HCPCS: 12001; 12011; 70450; 72125; 73100; 99283; 99284

== ENCOUNTER 2023-05-16 09:57 | Emergency (ER) | payer MEDICARE, OTHER, SELFPAY ==
[2023-05-16 10:03] VITALS: PULSE 62; O2SAT 98
--- NOTE | 2023-05-16 10:07 | DI.RAD.S_ITS ---
PROCEDURE: XR CHEST 1V INDICATIONS: Shortness of breath TECHNIQUE: One view of the chest was acquired. COMPARISON: [facility], CR, XR CHEST 2V, 10/07/2022, 20:57. FINDINGS: Surgical changes and devices: None. Lungs and pleura: Submaximal inspiration. Patchy bibasilar atelectasis. No pleural effusions or pneumothorax. Mediastinum: Mediastinal contours appear normal. Heart size is normal. Bones and chest wall: No suspicious bony lesions. Overlying soft tissues appear unremarkable. IMPRESSION: Submaximal inspiration. Patchy bibasilar atelectasis. Dictated by: Nikolas Chang M.D. on 05/16/2023 at 10:39 Approved by: Nikolas Chang M.D. on 05/16/2023 at 10:40
[2023-05-16 10:08] VITALS: BP 174/74; PULSE 65; RESP 20; TEMP 36.6; O2SAT 98; BMI 27.0
--- NOTE | 2023-05-16 10:14 | ED_ITS ---
HPI - SOB/Dyspnea General Chief Complaint: Upper Respiratory Symptoms Stated Complaint: poss pneumonia T-5 getting worse Time Seen by Provider: 05/16/23 10:05 History of Present Illness HPI Narrative: Patient is a 72-year-old male history of hypertension presenting today with cough and shortness of breath. Reports that had upper respiratory illness. However for the last 5 days he feels like his is getting worse he is coughing up green jump. He is had low-grade fever 100.3. He denies any shortness of breath no chest pain. No nausea or vomiting. He feels like he is staying hydrated. They did not do any testing at home. Related Data Home Medications Medication Instructions Recorded Confirmed amlodipine 5 mg tablet 5 mg PO DAILY 04/06/23 04/06/23 atenolol 50 mg tablet 100 mg PO DAILY 04/06/23 04/06/23 Previous Rx's Medication Instructions Recorded amoxicillin 500 mg capsule 1,000 mg (2 x 500 mg) PO TID 5 05/16/23 days #30 caps azithromycin 250 mg tablet 250 mg PO DAILY 5 days #6 tabs 05/16/23 Allergies Allergy/AdvReac Type Severity Reaction Status Date / Time benzocaine [From Solarcaine] Allergy Rash Verified 05/16/23 10:15 triclosan [From Solarcaine] Allergy Rash Verified 05/16/23 10:15 Patient History Social History Smoking Status: Never smoker Smoking Status: Never smoker alcohol intake frequency: holidays/special occasions only Substance Use Type: does not use Exam Initial Vital Signs Initial Vital Signs: Vital Signs Pulse Rate 62 05/16/23 10:03 Pulse Oximetry 98 05/16/23 10:03 GENERAL: Alert 72-year-old male and in no acute distress. HEENT: Head atraumatic,EOMI, pupils reactive, face symmetric, moist mucous membranes CARDIOVASCULAR: Regular rate and rhythm without murmurs, rubs or gallops. RESPIRATORY: Breath sounds equal bilaterally, no wheezes rales or rhonchi. No respiratory distress ABDOMEN: Soft, nontender. Normoactive bowel sounds all 4 quadrants. No guarding or rebound. EXTREMITIES: Normal range of motion, no clubbing or edema. Neurovascularly intact NEUROLOGICAL: Alert and oriented x4.Normal gait and speech. SKIN: Warm, dry, no laceration, no petechiae, no rashes or lesions. Course Orders Ordered: ED Orders 05/16/23 10:05 COVID19 -Nasal RAPID Stat 05/16/23 10:07 XR chest 1V Stat EKG-12 Lead Stat Measure peak expiratory flow ONCE RT Consult Eval and Treat NOW 05/16/23 10:19 Complete Blood Count AUTO DIFF Stat Comprehensive Metabolic Panel Stat Lactate (Lactic Acid) Stat NT-proBNP (BNP-Adult 18+) Stat Prothrombin Time INR Stat Troponin I Stat 05/16/23 11:00 Blood Culture Stat Discontinued Medications Sodium Chloride (Normal Saline 0.9%) 1,000 mls @ 1,000 mls/hr IV BOLUS ONE Stop: 05/16/23 11:29 Last Admin: 05/16/23 10:40 Dose: 1,000 mls/hr Documented By: HAYDEN Vital Signs Vital signs: Vital Signs - 8 hr 05/16/23 10:03 05/16/23 10:08 05/16/23 10:30 Temperature 97.8 F Pulse Rate 62 65 56 L Respiratory Rate 20 19 Blood Pressure 174/74 H Pulse Oximetry 98 98 96 Oxygen Delivery Method Room Air Room Air 05/16/23 10:31 05/16/23 10:31 05/16/23 11:00 Temperature Pulse Rate 58 L 54 L Respiratory Rate 18 18 Blood Pressure 155/70 H 144/67 H Pulse Oximetry 97 100 Oxygen Delivery Method Room Air MDM - SOB/Dyspnea Lab Data 05/16/23 10:19 05/16/23 10:19 Labs: Lab Results 05/16/23 05/16/23 Range/Units 10:05 10:19 WBC 13.9 H (4.5-11.0) X10^3/uL RBC 4.33 L (4.5-5.9) X10^6/uL Hgb 13.0 L (13.5-17.5) g/dL Hct 38.5 L (41-53) % MCV 89.0 (80-100) fL MCH 30.0 (26-34) PG MCHC 33.7 (30-36) % RDW 13.2 (11.6-14.8) % Plt Count 241 (150-400) X10^3/uL Neut % (Auto) 63.9 (50-75) % Lymph % (Auto) 18.3 L (25-40) % Shannon % (Auto) 12.3 (3-14) % Eos % (Auto) 4.9 H (2-4) % Baso % (Auto) 0.6 (0-2) % Neut # (Auto) 8900 H (7377-7586) /uL Lymph # (Auto) 2500 (9921-1748) /uL Shannon # (Auto) 1700 H (0-900) /uL Eos # (Auto) 700 H (0-450) /uL Baso # (Auto) 100 (0-100) /uL PT 13.7 H (10.1-12.7) SECONDS INR 1.2 (0.9-1.3) Sodium 137 (137-145) mmol/L Potassium 3.8 (3.4-5.1) mmol/L Chloride 105 (98-107) mmol/L Carbon Dioxide 23 (22-32) mmol/L BUN 17 (9-20) mg/dL Creatinine 0.87 (0.66-1.25) mg/dL Estimated GFR > 60 (>60) mL/min BUN/Creatinine Ratio 19.5 (6-22) Glucose 133 H (80-110) mg/dL Lactate 1.2 (0.7-2.1) mmol/L Calcium 9.4 (8.4-10.2) mg/dL Total Bilirubin 0.5 (0.2-1.3) mg/dL AST 41 (17-59) IU/L ALT 42 (<50) IU/L Alkaline Phosphatase 77 (38-126) U/L Troponin I < 0.012 (0.01-0.034) ng/mL NT-Pro-B Natriuret Pep 407 H (<125) pg/mL Total Protein 7.5 (6.3-8.2) g/dL Albumin 4.1 (3.5-5.0) g/dL Globulin 3.4 (1.7-4.1) g/dL Albumin/Globulin Ratio 1.2 (1.0-2.8) SARS-CoV-2 (PCR) Negative (Negative) Imaging Data Chest x-ray: Radiologist's Impression: PROCEDURE: XR CHEST 1V INDICATIONS: Shortness of breath TECHNIQUE: One view of the chest was acquired. COMPARISON: [facility], CR, XR CHEST 2V, 10/07/2022, 20:57. FINDINGS: Surgical changes and devices: None. Lungs and pleura: Submaximal inspiration. Patchy bibasilar atelectasis. No pleural effusions or pneumothorax. Mediastinum: Mediastinal contours appear normal. Heart size is normal. Bones and chest wall: No suspicious bony lesions. Overlying soft tissues appear unremarkable. IMPRESSION: Submaximal inspiration. Patchy bibasilar atelectasis. Dictated by: Nikolas Chang M.D. on 05/16/2023 at 10:39 ECG Data Interpretation: Normal sinus rhythm rate 59 VA 176 QRS [address] changes or T-wave inversions MDM Narrative Medical decision making narrative: Patient 72-year-old male who presents today with upper respiratory like symptoms. Not hypoxic febrile show any signs of sepsis. He is mild leukocytosis of 13 with patchy infiltrate on x-ray. Who COVID test is negative. Ongoing symptoms with productive sputum reasonable to start on outpatient antibiotics for pneumonia. Does not need any sort of criteria for admission. Lab work has been reviewed, WBC 13.9 and lactate 1.2 negative troponins Chest x-ray patchy infiltrate Patient discharge with antibiotics for community-acquired pneumonia Discharge Plan Departure Patient Disposition: Home Clinical Impression: Atypical pneumonia Instructions: Atypical Pneumonia Activity Restrictions/Additional Instructions: *You have been diagnosed with atypical pneumonia *What to do: At this time your COVID test is negative you likely have an atypical pneumonia but blood work and everything else are overall reassuring. *Continue to take medications as directed --> SENT TO [facility] Amoxicillin 1000 mg 3 times a day for 5 days Z-[place] as directed for 5 days *Follow up with your primary care provider in 2-3 days or call [phone] *Return to ER if you should have increasing shortness of breath chest pain not tolerating fluids [or] any new, worsening or concerning symptoms Prescriptions: New amoxicillin 500 mg capsule 1,000 mg PO TID 5 Days Qty: 30 0RF azithromycin 250 mg tablet 250 mg PO DAILY 5 Days Qty: 6 0RF No Action amlodipine 5 mg tablet 5 mg PO DAILY atenolol 50 mg tablet 100 mg PO DAILY Referrals: Yusef Cota DO [Primary Care Provider] - Stand Alone Forms: Patient Portal/API
[2023-05-16 10:30] VITALS: PULSE 56; RESP 19; O2SAT 96
[2023-05-16 10:30] LABS: Add Manual Diff / Slide Review NO; Basophils Absolute Auto 100 /uL (0-100); Basophils Percent Auto 0.6 % (0-2); Eosinophils Absolute Auto 700 /uL (0-450); Eosinophils Percent Auto 4.9 % (2-4); Hematocrit 38.5 % (41-53); Lymphocytes Absolute Auto 2500 /uL (1100-4500); Lymphocytes Percent Auto 18.3 % (25-40); Mean Corpuscular HGB Conc 33.7 % (30-36); Monocytes Absolute Auto 1700 /uL (0-900); Monocytes Percent Auto 12.3 % (3-14); Neutrophils Absolute Auto 8900 /uL (1500-7000); Neutrophils Percent Auto 63.9 % (50-75); Platelet Count 241 X10^3/uL (150-400); Red Blood Cell Count 4.33 X10^6/uL (4.5-5.9); Red Cell Distribution Width 13.2 % (11.6-14.8); White Blood Cell Count 13.9 X10^3/uL (4.5-11.0)
[2023-05-16 10:31] VITALS: BP 155/70; PULSE 58; RESP 18; O2SAT 97
[2023-05-16 10:36] LABS: INR 1.2 (0.9-1.3); Prothrombin Time 13.7 SECONDS (10.1-12.7)
[2023-05-16] MEDS: SODIUM CHLORIDE 0.9% 1,000 ML 1000 ML IV (10:40)
[2023-05-16 10:41] LABS: Alanine Aminotransferase 42 IU/L (<50); Albumin 4.1 g/dL (3.5-5.0); Albumin Globulin Ratio 1.2 (1.0-2.8); Alkaline Phosphatase 77 U/L (38-126); Aspartate Aminotransferase 41 IU/L (17-59); BUN Creatinine Ratio 19.5 (6-22); Bilirubin Total 0.5 mg/dL (0.2-1.3); Blood Urea Nitrogen 17 mg/dL (9-20); Calcium 9.4 mg/dL (8.4-10.2); Carbon Dioxide 23 mmol/L (22-32); Chloride 105 mmol/L (98-107); Estimated Glomerular Filt Rate > 60 mL/min (>60); Globulin 3.4 g/dL (1.7-4.1); Glucose 133 mg/dL (80-110); HEMOLYSIS < 15 (0-50); Lactate (Lactic Acid) 1.2 mmol/L (0.7-2.1); Potassium 3.8 mmol/L (3.4-5.1); Sodium 137 mmol/L (137-145); Total Protein 7.5 g/dL (6.3-8.2)
[2023-05-16 10:52] LABS: NT-proBNP (BNP-Adult 18+) 407 pg/mL (<125); Troponin I < 0.012 ng/mL (0.01-0.034)
[2023-05-16 11:00] VITALS: BP 144/67; PULSE 54; RESP 18; O2SAT 100
[2023-05-16 11:04] LABS: COVID19 -Nasal RAPID Negative (Negative)
== END 2023-05-16 11:25 | disposition home or self-care (01) ==
PROVIDERS: Emergency Provider Emergency Medicine; PCP Family Medicine
DX: J18.9 Pneumonia, unspecified organism (principal); Z20.822 Contact with and (suspected) exposure to COVID-19; I10 Essential (primary) hypertension
CPT/HCPCS: 36415; 71045; 80053; 83605; 83880; 84484; 85025; 85610; 87040; 87635; 93005; 93010; 99284; C9803

== ENCOUNTER 2023-10-28 14:11 | Emergency (ER) | payer MEDICARE, OTHER, SELFPAY ==
[2023-10-28 14:43] VITALS: BP 127/65; PULSE 57; RESP 18; TEMP 36.2; O2SAT 98; BMI 27.0
[2023-10-28 18:33] VITALS: BP 125/65; PULSE 61; RESP 18; O2SAT 98
--- NOTE | 2023-10-29 19:33 | ED_ITS ---
HPI - Nausea/Vomiting/Diarrhea <Brittany Groves PA-C - Last Filed: 11/04/23 19:29> General Chief complaint: Nausea/Vomiting/Diarrhea Stated complaint: was unable to swallow his water, vomiting Time Seen by Provider: 10/28/23 17:19 Source: patient Mode of arrival: Ambulatory History of Present Illness HPI Narrative: 73-year-old male presents to the ED with an episode of swallowing difficulty that occurred earlier today. Patient states that he went out to lunch, ate some [place] food. When he drank some water with the food, he felt like it would not go down and he started vomiting. He vomited 3-4 times. Patient however states that when he was eating the food it did not feel like it got stuck in his throat or esophagus. Patient states that he has had some intermittent swallowing issues over the past several months that has not been evaluated thus far. Since the incident at lunch, patient has been successfully drinking water without choking or any swallowing difficulties. Patient denies any other symptoms. Patient endorses a distant history of GERD, however it is not an issue currently. Related Data Home Medications Medication Instructions Recorded Confirmed amlodipine 5 mg tablet 5 mg PO DAILY 04/06/23 04/06/23 atenolol 50 mg tablet 100 mg PO DAILY 04/06/23 04/06/23 Allergies Allergy/AdvReac Type Severity Reaction Status Date / Time benzocaine [From Solarcaine] Allergy Rash Verified 05/16/23 10:15 triclosan [From Solarcaine] Allergy Rash Verified 05/16/23 10:15 Review of Systems <Brittany Groves PA-C - Last Filed: 11/04/23 19:29> Constitutional Constitutional: Denies chills, Denies fatigue, Denies fever(s), Denies frequent falls, Denies lethargy and Denies weakness Eyes Eyes: Denies change in vision, Denies eye discharge, Denies irritation and Denies loss of vision ENT Ears, Nose, Mouth, and Throat: Denies change in voice, Denies dizziness, Denies neck pain, Denies sore throat and Denies throat swelling Cardiovascular Cardiovascular: Denies chest pain, Denies irregular heart rhythm, Denies lightheadedness, Denies palpitations, Denies dyspnea, Denies dyspnea on exertion and Denies orthopnea Respiratory Respiratory: Denies cough, Denies dyspnea, Denies dyspnea on exertion and Denies wheezing Gastrointestinal Gastrointestinal: Denies abdominal pain, Denies change in bowel habits, Denies diarrhea, Denies nausea and Reports vomiting Comments: Choking and vomiting Musculoskeletal Musculoskeletal: Denies neck pain and Denies numbness Integumentary/Breasts Skin/Breast: Denies pruritus, Denies erythema, Denies rash and Denies wounds Neurologic Neurologic: Denies behavioral changes, Denies confusion, Denies dizziness, Denies frequent falls, Denies loss of vision, Denies numbness and Denies weakness Psychiatric Psychiatric: Denies anxiety, Denies behavioral changes, Denies confusion, Denies depression, Denies homicidal ideation and Denies suicidal ideation Endocrine Endocrine: Denies fatigue, Denies flushing and Denies palpitations Hematologic/Lymphatic Hematologic/Lymphatic: Denies easy bruising Allergic/Immunologic Allergic/Immunologic: Denies urticaria, Denies throat swelling and Denies wheezing Patient History <Brittany Groves PA-C - Last Filed: 11/04/23 19:29> Social History Smoking Status: Never smoker Smoking Status: Never smoker alcohol intake frequency: holidays/special occasions only Substance Use Type: does not use Exam <Brittany Groves PA-C - Last Filed: 11/04/23 19:29> Narrative Exam Narrative: Const General:?cooperative, healthy appearing and comfortable [facility] Head:?normal to inspection Ears:?hearing grossly normal bilaterally Nose:?external nose normal Face and sinus:?normal facial exam and sinuses nontender Mouth:?oral mucosae normal Throat:?posterior oropharynx normal Eyes General:?appearance normal, both eyes and all related structures Neck Neck:?normal visual inspection and no lymphadenopathy noted Resp Effort & Inspection:?normal respiratory effort Auscultation:?clear to auscultation bilaterally Cardio Rate:?regular rate Rhythm:?regular rhythm Neuro General:?patient alert, patient awake and patient oriented x3 Initial Vital Signs Initial Vital Signs: Vital Signs Temperature 97.1 F L 10/28/23 14:43 Pulse Rate 57 L 10/28/23 14:43 Respiratory Rate 18 10/28/23 14:43 Blood Pressure 127/65 10/28/23 14:43 Pulse Oximetry 98 10/28/23 14:43 Oxygen Delivery Method Room Air 10/28/23 14:43 <Chey Caal DO - Last Filed: 11/09/23 01:10> Initial Vital Signs Initial Vital Signs: Vital Signs Temperature 97.1 F L 10/28/23 14:43 Pulse Rate 57 L 10/28/23 14:43 Respiratory Rate 18 10/28/23 14:43 Blood Pressure 127/65 10/28/23 14:43 Pulse Oximetry 98 10/28/23 14:43 Oxygen Delivery Method Room Air 10/28/23 14:43 MDM - Nausea/Vomiting/Diarrhea <Brittany Groves PA-C - Last Filed: 11/04/23 19:29> MDM Narrative Medical decision making narrative: 73-year-old male presents to the ED with an episode of swallowing difficulty that occurred earlier today. It is reassuring that patient is able to tolerate p.o. without choking or any swallowing difficulties. While it is unclear the etiology of the swallowing issue, recommend follow-up with PCP and a GI specialist for further evaluation, especially since this has been an ongoing issue. Recommend altoids or peppermint oil prior to meals to relax the esophagus. ED return precautions discussed with patient. Patient verbalized understanding. Medical records reviewed: Yes Discharge Plan Departure Patient Disposition: Home Clinical Impression: Swallowing difficulty Qualifiers: Dysphagia type: unspecified Qualified Code(s): R13.10 - Dysphagia, unspecified Instructions: Oropharyngeal Dysphagia Activity Restrictions/Additional Instructions: You were evaluated in the ED today for some swallowing issues that you experienced earlier today. It is reassuring to note that you were now able to tolerate water without any trouble or discomfort. While it is unclear the exact reason why you had this episode of choking on water, it is advised that you follow-up with your PCP and undergo further evaluation for it. It appears you have had some swallowing issues over the past few years, further evaluation including a swallow study or an endoscopy might be indicated. In the meanwhile, you may try eating peppermint such as deltoids before a meal. Very hot or very cold foods can trigger choking, as well as acid reflux. Return to the ED if you have worsening symptoms, trouble keeping down water and food. Prescriptions: No Action amlodipine 5 mg tablet 5 mg PO DAILY atenolol 50 mg tablet 100 mg PO DAILY Referrals: Yusef Cota DO [Primary Care Provider] - Stand Alone Forms: Patient Portal/API ED Sign-out <Chey Caal DO - Last Filed: 11/09/23 01:10> Cosign ED Attending Cosignature Attestation: I was immediately available in the department for consultation.
== END 2023-10-28 18:41 | disposition home or self-care (01) ==
PROVIDERS: Emergency Provider Student in an Organized Health Care Education/Training Program; PCP Family Medicine
DX: R13.10 Dysphagia, unspecified (principal)
CPT/HCPCS: 99281